=== PATIENT | male | born 2000 | race African-American/Black ===

== ENCOUNTER 2020-02-02 08:31 | Emergency (ER) | payer MEDICAID, OTHER ==
[~2020-02-02] VITALS: Ht 180.3 cm; Wt 163.3 kg
[2020-02-02 08:47] VITALS: BP 150/86
== END 2020-02-02 10:28 | disposition home or self-care (01) ==
LOC: ER 08:31
DX: F41.9 Anxiety disorder, unspecified (principal); R51.9 Headache, unspecified; Z20.828 Contact with and (suspected) exposure to other viral communicable diseases
CPT/HCPCS: 36415; 71045; 87426